=== PATIENT | female | born 1935 | race Caucasian/White ===

== ENCOUNTER 2020-03-07 07:07 | Observation (INO) ==
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
[2020-03-07 07:45] LABS: Hematocrit 35.3 % (37.0-47.0); Hemoglobin 11.5 gm/dL (12.5-16.0); Mean Cell Volume 94.9 fl (78-100); Mean Corpuscular Hemoglobin 30.9 pg (27-31); Mean Corpuscular Hgb Conc 32.6 g/dl (32-36); Mean Platelet Volume 10.1 fl (8-12.5); Neutrophil # 10.1 K/mm3 (1.3-6.0); Neutrophil % 78.2 % (42-75.0); Platelet Count 177 K/mm3 (150-450); Red Blood Count 3.72 M/mm3 (4.2-5.4); Red Cell Distribution Width 11.9 % (11.5-14.0); White Blood Count 12.9 K/mm3 (4.0-10.5)
[2020-03-07 08:05] LABS: ALT 15 U/L (19-67); AST 16 U/L (0-48); Albumin * 3.5 gm/dl (3.4-5.0); Alkaline Phosphatase * 64 U/L (50-170); Anion Gap 11.9 mmol/L (6.8-13.8); Bilirubin, Total 0.8 mg/dL (0.0-1.1); Blood Urea Nitrogen 19 mg/dL (3-23); Ca. Corrected For Albumin 9.7 mg/dL (8.4-10.2); Calcium * 9.6 mg/dL (7.9-10.9); Carbon Dioxide 28.8 mmol/L (24-32.6); Chloride 99 mmol/L (97-106); Glucose * 119 mg/dL (70-110); Potassium 3.7 mmol/L (3.4-4.6); Sodium 136 mmol/L (132-142); Total Protein 7.6 gm/dL (6.2-8.2); Troponin I Less than 0.017 ng/mL (0.00-0.10)
[2020-03-07] MEDS ORDERED: ACETAMINOPHEN 500 MG TABLET PO ONE (08:24)
[2020-03-07 09:01] LABS: Urine Bilirubin Negative (NEGATIVE); Urine Ketone Negative (NEGATIVE); Urine Protein Negative (NEGATIVE); Urine Urobilinogen Normal (NORMAL)
[2020-03-07 09:12] LABS: Urine Appearance Slightly Cloudy (CLEAR); Urine Bacteria 3+; Urine Blood 5 /ul (NEGATIVE); Urine Color Yellow; Urine Nitrite Positive (NEGATIVE); Urine RBC TRACE /hpf (0-5)
[2020-03-07] MEDS ORDERED: ENOXAPARIN SODIUM 30 MG/0.3 ML SYRG SC ONE (11:14)
[2020-03-07] MEDS ORDERED: cefTRIAXone SODIUM 1,000 MG/100 ML BAG IV ONE (11:15)
[2020-03-07] MEDS ORDERED: ENOXAPARIN SODIUM 60 MG/0.6 ML SYRG SC ONE (11:30)
[2020-03-07] MEDS: ACETAMINOPHEN 500 MG TABLET PO SCH (20:22)
[2020-03-07] MEDS: CIPROFLOXACIN HCL 500 MG TABLET PO SCH (20:22)
[2020-03-07] MEDS: APIXABAN 5 MG TABLET PO SCH (20:22)
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
[2020-03-08] MEDS: CIPROFLOXACIN HCL 500 MG TABLET PO SCH (08:43)
[2020-03-08] MEDS: APIXABAN 5 MG TABLET PO SCH (08:44)
[2020-03-08] MEDS: ACETAMINOPHEN 500 MG TABLET PO SCH (08:44)
--- NOTE | 2020-03-08 10:04 | DS ---
(1) Acute pulmonary embolism Problem: Acute Qualifiers: Pulmonary embolism type: unspecified Acute cor pulmonale presence: without acute cor pulmonale Qualified Code(s): I26.99 - Other pulmonary embolism without acute cor pulmonale (2) UTI (urinary tract infection) Problem: Acute Qualifiers: Urinary tract infection type: acute cystitis Hematuria presence: without hematuria Qualified Code(s): N30.00 - Acute cystitis without hematuria (3) Schizoid personality disorder Problem: Chronic Date of Discharge:: 03/08/20 Hospital Course: Beata is an 84 yo female admitted with acute pulmonary embolism and UTI. She was started on Eliquis 10mg PO BID and Cipro 500mg PO BID. She was admitted to observation to monitor her respiratory status and had no hypoxic episodes throughout hospital course. She is doing well and will be discharge to her home at [facility] today. She will need to be on Cipro 500mg PO BID x 5 days and Eliquis will be 10mg PO BID x 7 days then 5mg PO BID for 6 months. Procedures Performed: none Results and Findings: Pending Mircobiology Results 03/07/20 08:40 Urine,Voided Urine Culture - Preliminary Gram Negative Bacilli Lab Pending Results 03/07/20 07:38: WBC 12.9 H, RBC 3.72 L, Hgb 11.5 L, Hct 35.3 L, MCV 94.9, MCH 30.9, MCHC 32.6, RDW 11.9, Plt Count 177, MPV 10.1, Immature Gran % (Auto) 0.40, Immature Gran # (Auto) 0.05 H, Neutrophils % 78.2 H, Lymphocytes % 11.8 L, Monocytes % 8.9, Eosinophils % 0.5, Basophils % 0.2, Nucleated RBC % 0.0, Neutro phils # 10.1 H, Lymphocytes # 1.53, Monocytes # 1.2 H, Eosinophils # 0.1, Absolute Basophils 0.0 03/07/20 07:38: Sodium 136, Plasma Sodium 136, Potassium 3.7, Chloride 99, Car bon Dioxide 28.8, Anion Gap 11.9, BUN 19 D, Creatinine 1.00, Est GFR (Non-Af Amer) 56 L, BUN/Creatinine Ratio 19.0, Random Glucose 119 H, Calcium 9.6, Calcium Adj for Albumin 9.7, Total Bilirubin 0.8, AST 16, ALT 15 L, Alkaline Phosphatase 64, Troponin I Less than 0.017, Total Protein 7.6, Albumin 3.5 03/07/20 08:40: Urine Color Yellow, Urine Appearance Slightly cloudy, Urine pH 7.0, Ur Specific [place] 1.020, Urine Protein Negative, Urine Glucose (UA) Negative, Urine Ketones Negative, Urine Blood 5 H, Urine Nitrate Positive H, Urine Bilirubin Negative, Urine Urobilinogen Normal, Ur Leukocyte Esterase 25 H, Urine RBC Trace, Urine WBC 5-10 H, Ur Epithelial Cells 5-10 H, Urine Bacteria 3+ H, Urine Culture Comments Culture to follow 03/07/20 08:56: D-Dimer 2.29 H 03/07/20 11:23: SARS-CoV-2 (PCR) Not detected Discharge Location: [facility] Disposition: [facility] Condition: Fair Level of Care: SNF Discharge Activity: Activity as tolerated Discharge Diet: General/regular food Fpc Therapy: Physical Therapy, Occupation Therapy, Speech Therapy Referrals: Candis Mcleod ARNP [[facility]] - Problem Oriented Discharge Instructions to Patient/Family: Pulmonary Embolism, Urinary Tract Infection, Adult, [id number] Prescriptions (Any new or edited meds): Ciprofloxacin HCl [Cipro] 500 mg PO BID #10 tab Transmission Status: Pending to [facility] Apixaban [Eliquis] 5 mg PO BID #60 tab Transmission Status: Pending to [facility] Apixaban [Eliquis] 10 mg PO BID #28 tab Transmission Status: Pending to [facility] Complete Home Medications List: Complete Home Medication List: acetaminophen 500 mg tablet 1,000 mg PO BID tab 12/21/18 Apixaban [Eliquis] 5 mg PO BID #60 tab 03/08/20 Apixaban [Eliquis] 10 mg PO BID #28 tab 03/08/20 Ciprofloxacin HCl [Cipro] 500 mg PO BID #10 tab 03/08/20
[2020-03-08 11:21] VITALS: BP 123/56
== END 2020-03-08 11:00 ==
LOC: MS 07:07 → ER 07:07 → MS 13:14
PROVIDERS: ADMIT Family Medicine; ATTEND Family Medicine